=== PATIENT | male | born 2000 | race Two or more races ===

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

== ENCOUNTER 2019-03-07 19:30 | Emergency (ER) | payer OTHER ==
[~2019-03-07] VITALS: Ht 172.7 cm; Wt 75.3 kg
[2019-03-07 19:33] VITALS: Ht 172.7 cm; Wt 75.3 kg
[2019-03-07 21:23] VITALS: BP 129/83
== END 2019-03-07 20:57 | disposition home or self-care (01) ==
LOC: ED 19:30
DX: S66.912A Strain of unspecified muscle, fascia and tendon at wrist and hand level, left hand, initial encounter (principal); J45.909 Unspecified asthma, uncomplicated; Z98.890 Other specified postprocedural states; W22.8XXA Striking against or struck by other objects, initial encounter; Y93.66 Activity, soccer; Y92.322 Soccer field as the place of occurrence of the external cause; Y99.8 Other external cause status